=== PATIENT | female | born 1955 | race Two or more races ===

== ENCOUNTER 2025-06-26 11:58 | Emergency (ER) | payer OTHER ==
[~2025-06-26] VITALS: Ht 147.3 cm; Wt 56.7 kg
[2025-06-26] MEDS ORDERED: ACETAMINOPHEN 500 MG GEL..CAP PO ONE (13:13)
[2025-06-26] MEDS ORDERED: CLINDAMYCIN PHOSPHATE 150 MG/ML (900mg) ONE (13:13)
[2025-06-26] MEDS ORDERED: DEXAMETHASONE SODIUM PHOSPHATE 4 MG/ML VIAL ONE (13:14)
[2025-06-26] MEDS ORDERED: ACETAMINOPHEN 325 MG TABLET PO ONE (13:15)
[2025-06-26] MEDS ORDERED: DEXAMETHASONE SODIUM PHOSP/PF 10 MG/ML VIAL IV ONE (13:15)
[2025-06-26] MEDS ORDERED: CLINDAMYCIN PHOSPHATE 150 MG/ML (900mg) IV ONE (13:15)
[2025-06-26 13:59] LABS: BASO % 0.4 % (0.1-1.2); EOS # 0.24 (0.04-0.54); EOS % 2.3 % (0.7-7.0); LYMPH # 1.56 (1.18-3.74); LYMPH % 14.8 % (19.3-53.1); MEAN PLATELET VOLUME 10.00 fl (9.4-12.4); MONO # 0.54 (0.24-0.82); MONO % 5.1 % (4.7-12.5); NEUT # 8.11 (1.56-6.13); NEUT % 77.0 % (34.0-71.1); RED CELL DISTRIBUTION WIDTH 12.9 % (11.6-14.4)
[2025-06-26 14:25] LABS: ALT/SGPT 27.0 U/L (12-78); AST/SGOT 15.0 U/L (15-37); BILIRUBIN TOTAL 0.59 mg/dL (0.3-1.2); BUN CREA RATIO 18.0 (7.0-25.0); CREATININE SERUM 0.8 mg/dL (0.55-1.02); GFR 71.54; GLOBULINA 3.3 G/DL (2.4-3.5); GLUCOSE FASTING 107.0 mg/dL (65-100); OSMOLALITY SERUM 284.0 MOSM/KG (275-295)
[2025-06-26] MEDS ORDERED: CLOTRIMAZOLE10 MG PO (20:45)
[2025-06-26] MEDS ORDERED: GUAIFENESIN400 MG PO (20:45)
[2025-06-26] MEDS ORDERED: AZITHROMYCIN500 MG PO (20:45)
[2025-06-26] MEDS ORDERED: PREDNISONE20 MG PO (20:45)
[2025-06-26] MEDS ORDERED: BENZONATATE200 M1 PO (20:45)
== END 2025-06-27 03:44 | disposition home or self-care (01) ==
LOC: ER 11:59
PROVIDERS: General Practice
DX: J40 Bronchitis, not specified as acute or chronic (principal); B37.0 Candidal stomatitis

== ENCOUNTER → 2025-07-01 | Emergency (ER) | payer OTHER ==
[~2025-07-01] MED LIST: AZITHROMYCIN500 MG PO; BENZONATATE200 M1 PO; CLOTRIMAZOLE10 MG PO; GUAIFENESIN400 MG PO; PREDNISONE20 MG PO
== END | disposition left against medical advice (07) ==
LOC: ER 15:30
DX: Z53.21 Procedure and treatment not carried out due to patient leaving prior to being seen by health care provider (principal)